=== PATIENT | female | born 1935 | race Caucasian/White ===

== ENCOUNTER 2017-05-14 15:27 | Emergency (ER) | payer MEDICARE, BC ==
[~2017-05-14] VITALS: Ht 154.9 cm; Wt 68.0 kg
[~2017-05-14 15:27] MED LIST: CILO100T PO; CRANCAP2 PO; ESZO1TAB3 PO; HYDR-3516 PO; LACTCAP8 PO; LISI-519 PO; MAGN1TAB14 PO; MILK175C6 PO; PRED1 PO; PRESCAP5 PO; SIMV5TAB3 PO; VITA1000 PO; VITA500T4 PO
[2017-05-14 15:28] VITALS: BP 132/70; PULSE 110; RESP 16; TEMP 98.4; O2SAT 94
[2017-05-14] MEDS ORDERED: SODIUM CHLORID 0.9% 500 ML INJ 500 ML IV ONE (16:00)
[2017-05-14] MEDS ORDERED: SODIUM CHLORIDE 0.9% FLUSH 10 ML FLUSH IVF PRN (16:00)
[2017-05-14] MEDS ORDERED: OCUVTAB4 PO (16:04)
[2017-05-14] MEDS ORDERED: LISI-519 PO (16:04)
[2017-05-14] MEDS ORDERED: HYDR-3516 PO (16:04)
[2017-05-14] MEDS ORDERED: CILO100T PO (16:04)
--- NOTE | 2017-05-14 16:04 | PD ---
HPI Chief Complaint: Neuro Symptoms/ Deficits Time Seen by Provider: 15:44 Travel History International Travel<30 days: No Contact w/Intl Traveler<30days: No Traveled to known affect area: No History of Present Illness HPI 81-year-old female presents to the emergency department with her at bedside for evaluation. The patient states she woke up this morning, "feeling weird, crazy". Patient's gives most of the history. Apparently, he was out mowing the lawn this morning. When he came in, he had noticed that she ate cookies which is not unusual for her. She was sitting on the back porch. He went and took a shower. When he came out, he asked her what she wanted for lunch, but she just put her hands up in the air. He then noticed that she was having trouble getting out of the chair. However, it was a lounging chair it is difficult to get out of. He didn't think too much of it, but this was unusual. He also noticed she had urinated in the chair, but she does have issues with incontinence. He eventually made pizza and then was asking her what she wanted to drink. She apparently kept saying "umm" over and over again. Her states she had a blank stare on her face and would not answer the question appropriately. He took her blood pressure and pulse which was normal. He then asked her again what she wanted to drink and she still responded "umm". He states that it seemed as if she had trouble speaking. The patient states she can remember the episode, but does not know why she couldn't tell her what she wanted. She denies any headache or vision changes. No chest pain or shortness of breath. She denies any abdominal pain. Nausea, vomiting, diarrhea. The patient is now able to answer questions appropriately and states that she feels her symptoms are better. She does state that she feels tired. No exacerbating or alleviating factors. She does report a mild cough. PFSH Past Medical History Cardiac Catheterization: Yes High Cholesterol: Yes Cerebrovascular Accident: Yes Immune Disorder: Yes (sarcoidosis) ?: Not Menopausal: Yes Past Surgical History Hysterectomy: Yes Tonsillectomy: Yes Other Surgery: Yes (BLADDER LIFT X2) Social History Alcohol Use: Yes (OCC) Tobacco Use: No Substance Use: No Allergies-Medications (Allergen,Severity, Reaction): Coded Allergies: amoxicillin (Unverified Allergy, Severe, Rash-HIVES, 03/15/17) clavulanic acid (Unverified Allergy, Severe, Rash-HIVES, 03/15/17) zolpidem (Unverified Allergy, Severe, 03/15/17) Reported Meds & Prescriptions Reported Meds & Active Scripts Active Reported Milk Thistle 500 Mg Capsule 750 Mg PO DAILY Preservision Areds (Multiple Vitamins W/ Minerals) 1 Tab 1 Tab PO DAILY Lisinopril 5 Mg Tab 5 Mg PO DAILY Hydrocodone-Acetaminophen 5-325 mg Tab 0.5 Tab PO BID PRN Cilostazol 100 Mg Tab 100 Mg PO HS Cranberry Urinary Comfort (Vitamins C & E) 1 Cap 1 Cap PO BID Prednisone 1 Mg Tab 2 Mg PO DAILY Vitamin D-1000 (Cholecalciferol) 1,000 Unit Tab 1,000 Units PO BID Probiotic (Lactobacillus Acidophilus) 1 Cap Cap 1 Cap PO DAILY Magnesium 400 Mg Tab 400 Mg PO DAILY Vitamin B-12 (Cyanocobalamin) 500 Mcg Tab 500 Mcg PO DAILY Simvastatin 5 Mg Tab 5 Mg PO EVERY OTHER DAY Review of Systems Except as stated in HPI: all other systems reviewed are Neg Physical Exam Narrative GENERAL: Well-nourished, well-developed elderly female patient, afebrile. Patient is alert and oriented to person, place, time and answers questions appropriately. SKIN: Focused skin assessment warm/dry. HEAD: Normocephalic. Atraumatic. ENT: Mucosa pink and moist. No erythema or exudates. No uvular edema. No uvular , palatal, or tonsillar deviation. Airway patent. Nasal turbinates appear normal without nasal blood, purulent drainage or septal hematoma. Bilateral tympanic membranes are clear without erythema or perforation. EYES: No scleral icterus. No injection or drainage. PERRLA. NECK: Supple, trachea midline. No JVD or lymphadenopathy. CARDIOVASCULAR: Regular rate and rhythm without murmurs, gallops, or rubs. RESPIRATORY: Breath sounds equal bilaterally. No accessory muscle use. Lungs sounds are clear to auscultation. GASTROINTESTINAL: Abdomen soft, non-tender, nondistended. MUSCULOSKELETAL: No cyanosis, or edema. Bilateral upper and lower extremity strength 5/5. All extremities are neurovascularly intact. NEUROLOGICAL: Awake and alert. Cranial nerves II through XII intact. Motor and sensory grossly within normal limits. Five out of 5 muscle strength in all muscle groups. Normal speech. Finger to nose is normal bilaterally. Heel-to- jang is normal bilaterally. Data Data Last Documented VS Vital Signs Date Time Temp Pulse Resp B/P (MAP) Pulse Ox O2 Delivery O2 Flow Rate FiO2 05/14/17 16:36 Room Air 05/14/17 15:28 98.4 110 16 94 Orders Orders Electrocardiogram (05/14/17:57) Prothrombin Time / Inr (Pt) (05/14/17 15:57) Act Partial Throm Time (Ptt) (05/14/17 15:57) Complete Blood Count With Diff (05/14/17:57) Comprehensive Metabolic Panel (05/14/17:57) Creatine Kinase (Cpk) (05/14/17:57) Troponin I (05/14/17:57) Urinalysis - C+S If Indicated (05/14/17 15:57) Ct Brain W/O Iv Contrast(Rout) (05/14/17 15:57) Chest, Single Ap (05/14/17 15:57) Ecg Monitoring (05/14/17 15:57) Iv Access Insert/Monitor (05/14/17:57) Oximetry (05/14/17 15:57) Cath For Specimen (05/14/17 15:57) Sodium Chloride 0.9% Flush (Ns Flush) (05/14/17 16:00) Sodium Chlorid 0.9% 500 Ml Inj (Ns 500 M (05/14/17 16:00) Urine Culture (05/14/17 16:25) Ceftriaxone Inj (Rocephin Inj) (05/14/17 18:15) Labs Laboratory Tests Test 05/14/17 16:25 05/14/17 17:00 Prothrombin Time 10.7 SEC Prothromb Time International Ratio 1.0 RATIO Activated Partial Thromboplast Time 22.4 SEC Urine Color YELLOW Urine Turbidity HAZY Urine pH 5.5 Urine Specific [place] 1.026 Urine Protein TRACE mg/dL Urine Glucose (UA) NEG mg/dL Urine Ketones NEG mg/dL Urine Occult Blood TRACE Urine Nitrite POS Urine Bilirubin NEG Urine Urobilinogen LESS THAN 2.0 MG/DL Urine Leukocyte Esterase LARGE Urine RBC 6 /hpf Urine WBC 52 /hpf Urine Bacteria MANY /hpf Urine Mucus FEW /lpf Microscopic Urinalysis Comment CATH-CULTURE IND Blood Urea Nitrogen 15 MG/DL Creatinine 0.76 MG/DL Random Glucose 119 MG/DL Total Protein 6.4 GM/DL Albumin 3.2 GM/DL Calcium Level 9.5 MG/DL Alkaline Phosphatase 76 U/L Aspartate Amino Transf (AST/SGOT) 44 U/L Alanine Aminotransferase (ALT/SGPT) 24 U/L Total Bilirubin 0.5 MG/DL Sodium Level 136 MEQ/L Potassium Level 5.1 MEQ/L Chloride Level 106 MEQ/L Carbon Dioxide Level 26.5 MEQ/L Anion Gap 4 MEQ/L Estimat Glomerular Filtration Rate 73 ML/MIN Total Creatine Kinase 109 U/L Troponin I LESS THAN 0.02 NG/ML White Blood Count 5.8 TH/MM3 Red Blood Count 4.53 MIL/MM3 Hemoglobin 13.2 GM/DL Hematocrit 40.1 % Mean Corpuscular Volume 88.4 FL Mean Corpuscular Hemoglobin 29.2 PG Mean Corpuscular Hemoglobin Concent 33.0 % Red Cell Distribution Width 13.7 % Platelet Count 92 TH/MM3 Mean Platelet Volume 9.9 FL Neutrophils (%) (Auto) 85.8 % Lymphocytes (%) (Auto) 7.0 % Monocytes (%) (Auto) 6.9 % Eosinophils (%) (Auto) 0.0 % Basophils (%) (Auto) 0.3 % Neutrophils # (Auto) 4.9 TH/MM3 Lymphocytes # (Auto) 0.4 TH/MM3 Monocytes # (Auto) 0.4 TH/MM3 Eosinophils # (Auto) 0.0 TH/MM3 Basophils # (Auto) 0.0 TH/MM3 CBC Comment AUTO DIFF MDM Medical Decision Making Medical Screen Exam Complete: Yes Emergency Medical Condition: Yes Medical Record Reviewed: Yes Interpretation(s) chest x-ray = CONCLUSION: 1. No acute cardiopulmonary disease. CT of the brain - CONCLUSION: 1. Hypodense changes throughout the cerebral white matter characteristic of chronic microvascular ischemic disease. 2. No evidence of acute infarct, hemorrhage, mass or edema. Differential Diagnosis TIA versus CVA versus electrolyte abnormality versus dehydration versus intracranial abnormality versus UTI Narrative Course 81-year-old female presents to the emergency department with her at bedside for possible neuro symptoms. EKG, CBC, CMP, CK, troponin, PTT, PT/INR, UA are ordered and pending. Chest x-ray, CT of the brain are ordered and pending. She is given normal saline 500 mV. EKG shows SR, HR 94, with a LBBB. CBC shows no acute abnormality, platelets are low at 92. CMP shows no acute abnormality. CK is 109. Troponin is less than 0.02. Coags show no acute abnormality. UA shows large leukocyte esterase , 52 WBC, many bacteria. Chest x-ray shows no acute cardiopulmonary disease. CT of the brain shows Hypodense changes throughout the cerebral white matter characteristic of chronic microvascular ischemic disease; No evidence of acute infarct, hemorrhage, mass or edema. I discussed admission with the patient for possible TIA, UTI. However, the patient declines admission. She is alert and oriented and appears capable of making this decision. She is aware of risk of leaving AMA, verbalizes understanding and states she does not want to stay. Patient is given Rocephin 1 g IV. She will be discharged prescription for Keflex. AMA: The risks of leaving against medical advice without further evaluation treatment were discussed with the patient. These risks include cardiac dysfunction, cardiac dysrhythmia, possible heart attack, possible stroke or . The patient indicated understanding of these risks and appeared to have the capacity to make this decision. Diagnosis Primary Impression: Left against medical advice Additional Impression: Urinary tract infection Qualified Codes: N30.01 - Acute cystitis with hematuria Referrals: Primary Care Physician call for appointment Patient Instructions: General Instructions, Urinary Tract Infection in Women ( ED) Additional Instructions: Take antibiotic as directed until gone. Follow up with primary care provider. Return to the emergency department for any acute, worsening of symptoms. Med/Other Pt SpecificInfo: Prescription(s) given Scripts Cephalexin (Keflex) 500 Mg Capsule 500 MG PO Q8H for Infection for 7 Days, #21 CAP 0 Refills Prov: Jenny Anders 05/14/17 Disposition: 07 AGAINST MEDICAL ADVICE Jenny Adners May 14, 2017 16:04
[2017-05-14] MEDS ORDERED: MILK500C2 PO (16:05)
--- NOTE | 2017-05-14 16:35 | RADRPT ---
EXAM DATE/TIME: 05/14/2017 16:14 [facility] COMPARISON: No previous studies available for comparison. INDICATIONS : Patient admitted for possible CVA. Shortness of breath. MEDICAL HISTORY : None. SURGICAL HISTORY : None. ENCOUNTER: Initial ACUITY: 1 day PAIN SCORE: 0/10 LOCATION: chest FINDINGS: The cardiac silhouette is normal in transverse diameter. The lungs are free of acute parenchymal opac ity. No effusions are identified. The lungs are hypoinflated. CONCLUSION: 1. No acute cardiopulmonary disease. Jamie Gerber MD on May 14, 2017 at 16:33 Board Certified Radiologist. This report was verified electronically.
[2017-05-14 16:51] LABS: BACTERIA, URINE MANY /hpf; BLOOD, URINE TRACE (NEG); COMMENT (UR) CATH-CULTURE IND; CULTURE IF INDICATED CATH CULTURE IND; GLUCOSE,URINE NEG (NEG); KETONE, URINE NEG (NEG); MUCUS URINE FEW /lpf (OCC); NITRITE,URINE POS (NEG); PH, URINE 5.5 (5.0-8.5); URINE COLOR YELLOW (YELLW/STRAW)
[2017-05-14 17:07] LABS: ANION GAP 4 MEQ/L (5-15); AST (GOT) 44 U/L (15-37); BICARBONATE 26.5 MEQ/L (21.0-32.0); BLOOD UREA NITROGEN 15 MG/DL (7-18); CHLORIDE 106 MEQ/L (98-107); GLOMERULAR FILTRATION RATE 73 ML/MIN (>89); SODIUM (NA) 136 MEQ/L (136-145)
[2017-05-14 17:09] LABS: APTT (PATIENT) 22.4 SEC (24.3-30.1); PROTHROMBIN TIME - PATIENT 10.7 SEC (9.8-11.6)
[2017-05-14 17:10] LABS: ALKALINE PHOSPHATASE 76 U/L (45-117); ALT (GPT) 24 U/L (10-53); CREATINE KINASE 109 U/L (26-192); TOTAL BILIRUBIN ADULT 0.5 MG/DL (0.2-1.0)
[2017-05-14 17:11] LABS: POTASSIUM 5.1 MEQ/L (3.5-5.1)
--- NOTE | 2017-05-14 17:37 | RADRPT ---
EXAM DATE/TIME: 05/14/2017 17:09 [facility] COMPARISON: No previous studies available for comparison. INDICATIONS : Altered mental status. RADIATION DOSE: 56.35 CTDIvol (mGy) MEDICAL HISTORY : Cardiovascular disease. Stroke Hypertension. SURGICAL HISTORY : Hysterectomy. ENCOUNTER: Initial ACUITY: 1 day PAIN SCALE: 0/10 LOCATION: cranial TECHNIQUE: Multiple contiguous axial images were obtained of the head. Using automated exposure control and adj ustment of the mA and/or kV according to patient size, radiation dose was kept as low as reasonably a chievable to obtain optimal diagnostic quality images. DICOM format image data is available electro nically for review and comparison. FINDINGS: CEREBRUM: The ventricles are normal for age. No evidence of midline shift, mass lesion, hemorrhage or acute in farction. Patchy hypodense changes are seen throughout the cerebral white matter. No extra-axial flui d collections are seen. POSTERIOR FOSSA: The cerebellum and brainstem are intact. The 4th ventricle is midline. The cerebellopontine angle i s unremarkable. EXTRACRANIAL: The visualized portion of the orbits is intact. SKULL: The calvaria is intact. No evidence of skull fracture. CONCLUSION: 1. Hypodense changes throughout the cerebral white matter characteristic of chronic microvascular isc hemic disease. 2. No evidence of acute infarct, hemorrhage, mass or edema. Jose Davila MD on May 14, 2017 at 17:34 Board Certified Radiologist. This report was verified electronically.
[2017-05-14 17:49] LABS: AUTOMATED NEUTROPHIL # 4.9 TH/MM3 (1.8-7.7); BASOPHIL % 0.3 % (0.0-2.0); HEMATOCRIT 40.1 % (35.0-46.0); LYMPHOCYTE # 0.4 TH/MM3 (1.0-4.8); MEAN CELL VOLUME 88.4 FL (80.0-100.0); MEAN CORPUSCULAR HEMOGLOBIN 29.2 PG (27.0-34.0); MONO % 6.9 % (0.0-8.0); NEUT % 85.8 % (16.0-70.0); PLATELET COUNT 92 TH/MM3 (150-450); RED BLOOD COUNT 4.53 MIL/MM3 (4.00-5.30); RED CELL DISTRIBUTION WIDTH 13.7 % (11.6-17.2); WHITE BLOOD COUNT 5.8 TH/MM3 (4.0-11.0)
[2017-05-14 17:54] LABS: HEMO FLAGS AUTO DIFF
[2017-05-14] MEDS ORDERED: cefTRIAXone INJ 1,000 MG in SODIUM CHLORIDE 0.9% INJ 100 ML IV ONE (18:15)
[2017-05-14] MEDS ORDERED: CEPH-460 PO (18:19)
[2017-05-14 19:05] LABS: BANDS 6 % (0-6); POLYS (SEG NEUTROPHILS) 80 % (16-70); SCAN/DIFF FINAL DIFF MANUAL; WBC DIFF SAMPLE 100
[2017-05-14 19:06] LABS: PLATELET ESTIMATE SMEAR LOW (NORMAL); PLATELET MORPHOLOGY NORMAL (NORMAL); TOXIC GRANULATION 1+ (NORMAL); TOXIC VACUOLATION PRESENT (NONE SEEN)
--- NOTE | 2017-05-15 07:43 | EKG ---
Date Performed: 05/14/2017 Time Performed: 16:15:41 PTAGE: 81 years EKG: Sinus rhythm MARKED LEFT AXIS DEVIATION LEFT BUNDLE BRANCH BLOCK ABNORMAL ECG Compared to prior electrocardiogram , left bundle branch block is now present. PREVIOUS TRACING : 05/11/2014 15.14 DOCTOR: Cam Hodge Interpretating Date/Time 05/15/2017 07:43:28
== END 2017-05-14 19:10 | disposition left against medical advice (07) ==
LOC: NEPE 15:27
DX: N30.01 Acute cystitis with hematuria (principal); E78.5 Hyperlipidemia, unspecified; Z86.73 Personal history of transient ischemic attack (TIA), and cerebral infarction without residual deficits; I44.7 Left bundle-branch block, unspecified; R05 Cough; D86.9 Sarcoidosis, unspecified
CPT/HCPCS: 70450; 71010; 80053; 81001; 82550; 84484; 85007; 85027; 85610; 85730; 87077; 87086; 87186; 93005; 96374; 99285; J0696; J7040